=== PATIENT | female | born 1995 | race Caucasian/White ===

== ENCOUNTER 2025-01-13 13:52 | Outpatient (AMB) | payer OTHER, SELFPAY ==
--- NOTE | 2025-01-13 13:56 | A.OFFPC_ITS ---
Vital Signs 01/13/25 14:13 Height 5 ft 11.75 in Weight 189 lb BMI 25.8 BP 104/74 Blood Pressure Location Rt brachial Position Sitting Pulse 60 Pulse Source Pulse Oximeter Temp 98.3 F Temp Source Temporal Artery Scan Pulse Oximetry (%) 97 Oxygen Delivery Method Room Air Intake Visit Reasons: CPE Intake Note: Sarahi presents in the office today for her annual physical. Allergies marijuana (cannabis) Allergy (Verified 01/13/25 14:00) Itchy Seasonal Allergies Allergy (Verified 01/13/25 14:00) Runny Nose Tobacco use date assessed: 01/13/25 Dental Screening Dental Screen Date: 01/13/25 Did you have a dental visit in the last 12 months?: No Did you have a dental problem in the last 6 months where you did not have access to dental care?: No Was dental information given to patient?: Yes HPI HPI Comments History of Present Illness Details This is a 29-year-old female with a past medical history of migraines, asthma, seasonal allergies, bela cisterna magna, elevated liver function tests and recurrent urticaria presenting to [facility] care. I saw her as a patient at [facility] care. Endorses fatigue x 1-2 months. Working 65 hours per week. Sleeps 5-6 hours per night. 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 The only other thing on ROS is that her feet fall asleep easily, but this is positional and improves. Reports last tetanus immunization four years ago when she cut her arm accidentally. 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 She will schedule eye and dental exams. The patient takes albuterol as needed for allergy induced asthma. She also takes Zyrtec. She uses famotidine as needed for acid reflux. She has an EpiPen for a cannabis allergy. She has anxiety and depression. She uses coping strategies like breathing techniques to manage anxiety. She has a therapist that she sees every week. She stopped using cocaine 6 months ago. She drinks alcohol once or twice per week socially 3-5 drinks. ROS: Constitutional: No unexplained weight loss, fever, chills or night sweats. Eyes: No vision changes, blurry vision, double vision, eye pain, eye redness, eye discharge. ENT: No hearing loss, sneezing, congestion, runny nose or sore throat. Respiratory: No shortness of breath, cough or sputum production. Cardiovascular: No chest pain, chest pressure or chest discomfort. No palpitations or pedal edema. Gastrointestinal: No anorexia, nausea, vomiting or diarrhea. No abdominal pain or blood in stool. Genitourinary: No dysuria, hematuria, urinary frequency. Neurologic: No headache, dizziness, syncope, unilateral weakness, ataxia, seizures or tremors. Musculoskeletal: No muscle pain, back pain, joint pain or swelling. Hematologic/Lymphatics: No bleeding or bruising. No painful lymph nodes. Skin: No rash or itching. Endocrine: No cold or heat intolerance. No polyuria or polydipsia. Psychiatric: See HPI. No SI/HI. Physical exam: Constitutional: Alert, in no distress. Head: Normocephalic. Eyes: Pupils are equal, round and reactive to light. Extraocular muscles intact. Ear, Nose and Throat: Canals clear. TMs normal. Normal nasal mucosa. No nasal discharge. No oral lesions. Neck: Supple, Full range of motion. No lymphadenopathy. No palpable thyroid masses. Respiratory: Clear to auscultation. Cardiovascular: S1 S2 regular. No murmurs. Gastrointestinal: Abdomen soft, non-tender, non-distended. Normal bowel sounds. No palpable masses. Neurologic: No focal neurological deficits. Symmetric patellar reflexes. Moves all extremities spontaneously. Sensation intact bilaterally. Skin: No rashes or lesions. Musculoskeletal: No gross deformities. Normal range of motion. Extremities: Warm and well perfused. No clubbing, cyanosis or edema. intact peripheral pulses bilaterally. Sensation of the feet intact bilaterally. Lower extremity strength 5/5 bilaterally. Psychiatric: Normal mood and affect [facility] Medical History (Updated 01/13/25 @ 15:19 by HALLIE Farias) Routine physical examination Bela cisterna magna Migraine Family history of ovarian cancer Screening for cardiovascular condition Fatigue Anxiety Depression Asthma Family History (Updated 01/13/25 @ 14:10 by Lora Noguera MA) Father Lung cancer Leukemia Stroke Woodward's palsy Substance abuse Mother Bipolar 1 disorder, depressed, severe PTSD (post-traumatic stress disorder) Ovarian cancer Blood clotting disorder FHx: mental illness Substance abuse Brother Asthma Liver failure Substance abuse Social History (Updated 01/13/25 @ 14:11 by Lora Noguera MA) Housing: Apartment Alcohol intake: current Patient Tobacco Use Status: Former Tobacco user Cigarette Packs Per Day: 1.5 Cigarettes Per Day: 30 Years Smoked: 3 e-Cigarette/Vaping Use: Currently Using Second Hand Smoke Exposure: Yes Substance Use Type: Crack/Cocaine and Marijuana service: No Current occupational status: employed Current occupation: [employer] Current occupational exposures/hazards: No Cognitive needs: No Hearing needs: No Vision needs: No Questionnaire PHQ-9 Over the last 2 weeks, how often have you been bothered by any of the following problems? 1. Little interest or pleasure in doing things: more than half the days 2. Feeling down, depressed, or hopeless: several days 3. Trouble falling or staying asleep, or sleeping too much: more than half the days 4. Feeling tired or having little energy: nearly every day 5. Poor appetite or overeating: several days 6. Feeling bad about yourself - or that you are a failure or have let yourself or your family down: not at all 7. Trouble concentrating on things, such as reading the newspaper or watching television: several days 8. Moving or speaking so slowly that other people could have noticed. Or the opposite - being so fidgety or restless that you have been moving around a lot more than usual: not at all 9. Thoughts that you would be better off or of hurting yourself in some way: not at all Total score: 10 Depression Screening Interpretation: Positive Depression Screening Follow-up: Existing condition and In treatment Depression Screening Done: Yes 35761 - PHQ-9 Billing: Yes Source: Developed by Drs. Moose Samson, Patti Newman, Han Mclean and colleagues, with an educational tanner from [employer] Thrive Questionnaire Date Thrive assessed: 01/13/25 I am a: Patient What is your living situation today?: I have a steady place to live Within the past 12 months, did the food you bought not last and you didn't have the money to get more?: Never true Within the past 12 months, did you worry whether your food would run out before you got money to buy more?: Sometimes True Do you have trouble paying for medicines?: Yes Do you have trouble getting transportation to medical appointments?: No Do you have trouble paying your heating and electricity bill?: No Do you have trouble taking care of your child, family member or friend?: No Do you have trouble with day-to-day activities such as bathing, preparing meals, shopping, managing finances, etc.?: No Are you currently unemployed and looking for a job?: No Are you interested in more education?: No Please select the resources that you would like help with: None Currently or been in a relationship where the following occur: No concerns reported THRIVE Score: 1 AUDIT C Alcohol Use Questionnaire (AUDIT-C) 1. How often do you have a drink containing alcohol?: 2-3 times a week 2. How many drinks containing alcohol do you have on a typical day when you are drinking?: 3 or 4 3. How often do you have six or more drinks on one occasion?: Less than monthly Total Score: 5 ADELINA-7 AMB Questionnaire ADELINA-7 Date ADELINA - 7 assessed: 01/13/25 Feeling nervous, anxious, or on edge: 0 = Not at all Not being able to stop or control worryin = Not at all Worrying too much about different things: 0 = Not at all Trouble relaxin = Not at all Being so restless that it is hard to sit still: 0 = Not at all Becoming easily annoyed or irritable: 1 = Several days Feeling afraid as if something awful might happen: 0 = Not at all Total ADELINA-7 score (0-4 normal; 5-9 mild; 10-14 moderate; 15-21 severe): 1 Source: Developed by Drs. Moose Samson, Patti Newman, Han Mclean and colleagues, with an educational tanner from [employer] ADELINA-7 Assessment Billing ADELINA-7 Assessment Tool: ADELINA-7 Assessment 74734 ACT Questionnaire In the past 4 weeks, how much of the time did your asthma keep you from getting as much done at work, school or at home?: A little of the time During the past 4 weeks, how often have you had shortness of breath?: More than once a day During the past 4 weeks, how often did your asthma symptoms wake you up at night or earlier than usual in the morning?: Not at all During the past 4 weeks, how often have you had to use your rescue inhaler or nebulizer medication?: More than 3 times per day (2 times a day) How would you rate your asthma control during the past 4 weeks?: Somewhat controlled ACT Interpretation: Positive Score: 14 Physical exam (Primary Care) Vital Signs: Last Vital Signs Temp 98.3 F 01/13/25 14:13 Pulse 60 01/13/25 14:13 BP 104/74 01/13/25 14:13 Pulse Ox 97 01/13/25 14:13 Oxygen Delivery Method Room Air 01/13/25 14:13 BMI result Body Mass Index 25.8 Tobacco/Smoking Status: Tobacco use Status Tobacco use date assessed 01/13/25 01/13/25 14:19 Patient Tobacco Use Status Former Tobacco user 01/13/25 14:19 e-Cigarette/Vaping Use Currently Using 01/13/25 14:19 PHQ-9: PHQ-9 Score PHQ-9: Total score 10 01/13/25 14:19 Depression Screening Interpretation: Positive Depression Screening Follow-up: Existing condition and In treatment Thrive Assessment: Date of Thrive Assessment Date Thrive assessed 01/13/25 01/13/25 14:19 Currently or been in a relationship where the following occur: No concerns reported Coding Level of Care Code Est Pt Prev Care 18-39y(91037) Diagnoses Depression F32.A Anxiety F41.9 Fatigue R53.83 Screening for cardiovascular condition Z13.6 Family history of ovarian cancer Z80.41 Routine physical examination Z00.00 Additional Codes Asthma Control Questionnaire - ACT Interpretation: Positive ([id number]) ADELINA-7 Assessment Billing - ADELINA-7 Assessment Tool: ADELINA-7 Assessment 65728 ([id number]) PHQ-9 - 98863 - PHQ-9 Billing: Yes ([id number]) Assessment & Plan Assessment & Plan (1) Depression: Code(s): F32.A - Depression, unspecified Category: Medical (2) Anxiety: Code(s): F41.9 - Anxiety disorder, unspecified Category: Medical (3) Fatigue: Code(s): R53.83 - Other fatigue Category: Medical Plan: Patient will have lab work completed for fatigues. Inadequate sleep may be contributing to this as well as depression and anxiety. Consider sleep study if lab work is nondiagnostic. (4) Screening for cardiovascular condition: Code(s): Z13.6 - Encounter for screening for cardiovascular disorders Category: Medical (5) Family history of ovarian cancer: Code(s): Z80.41 - Family history of malignant neoplasm of ovary Category: Medical (6) Routine physical examination: Code(s): Z00.00 - Encounter for general adult medical examination without abnormal findings Category: Medical Plan: Patient is seen today for a routine physical. As part of this visit we reviewed the following issues, which are considered and essential part of preventative health in this age group: - Breast Cancer screening - Annual Plant Anatomy Teacher exam - Blood pressure screening - Cholesterol screening - Osteoporosis prevention including calcium/vitamin D intake, weight bearing exercise & smoking cessation - Nutritional and exercise counseling - Counseling of injury prevention including fire prevention, smoke alarms and seat belt usage - Screening for depression - Prevention of and/or testing for infectious diseases- agreeable to screenings - Education about skin cancer - Recommendations about immunizations - Recommendation of an eye exam - Screening for substance abuse - Genetic cancer risk screening - referred to genetic counseling due to family history of ovarian cancer Plan Schedule physical in 1 year. Orders: Orders Comprehensive Met. Panel Today F32.A - Depression, unspecified, F41.9 - Anxiety disorder, unspecified, R53.83 - Other fatigue, Z13.6 - Encounter for screening for cardiovascular disorders Vitamin B12 and Folate Today D64.9 - Anemia, unspecified, F32.A - Depression, unspecified, F41.9 - Anxiety disorder, unspecified, R53.83 - Other fatigue, Z13.6 - Encounter for screening for cardiovascular disorders Vitamin D 25-OH (D2 and D3) Today F32.A - Depression, unspecified, F41.9 - Anxiety disorder, unspecified, R53.83 - Other fatigue, Z13.6 - Encounter for screening for cardiovascular disorders Hepatitis C Antibody Today Z20.2 - Contact with and (suspected) exposure to infections with a predominantly sexual mode of transmission HIV Ab/Ag Today Z20.2 - Contact with and (suspected) exposure to infections with a predominantly sexual mode of transmission Syphilis Screen Today Z20.2 - Contact with and (suspected) exposure to infections with a predominantly sexual mode of transmission TSH reflex Free T4 Today F32.A - Depression, unspecified, F41.9 - Anxiety disorder, unspecified, R53.83 - Other fatigue, Z13.6 - Encounter for screening for cardiovascular disorders Lipid Panel Today F32.A - Depression, unspecified, F41.9 - Anxiety disorder, unspecified, R53.83 - Other fatigue, Z13.6 - Encounter for screening for cardiovascular disorders Complete Blood Count Auto Diff Today F32.A - Depression, unspecified, F41.9 - Anxiety disorder, unspecified, R53.83 - Other fatigue, Z13.6 - Encounter for screening for cardiovascular disorders IRON PROFILE Today D64.9 - Anemia, unspecified, F32.A - Depression, unspecified, F41.9 - Anxiety disorder, unspecified, R53.83 - Other fatigue, Z13.6 - Encounter for screening for cardiovascular disorders Ferritin Today D64.9 - Anemia, unspecified, F32.A - Depression, unspecified, F41.9 - Anxiety disorder, unspecified, R53.83 - Other fatigue, Z13.6 - Encounter for screening for cardiovascular disorders Lyme IgG/IgM w/reflex to WB Today F32.A - Depression, unspecified, F41.9 - Anxiety disorder, unspecified, R53.83 - Other fatigue, Z13.6 - Encounter for screening for cardiovascular disorders CT NG by PCR Urine Today Z20.2 - Contact with and (suspected) exposure to infections with a predominantly sexual mode of transmission Referrals Genetics Referral Z80.41 - Family history of malignant neoplasm of ovary
--- OUTSIDE RECORDS SUMMARY | 2025-01-13 13:56 | XMS_ITS | Encounter Summary ---
Author Organization [facility] Address [address] [place] [phone] Phone Care Team Providers Care Baling Machine Operator Name Role Phone Unknown, Unknown Primary Care Provider Meggan Cummings NP Primary Care Provide r Encounter Details Date Type Department Care Team (Latest Contact Info) Description 08/07/2017 Transcribe Orders [facility] [address] [place] [address] Meggan Anaya, BICYCLE INSPECTOR [address] [place] [address] [email or web address] BMI (body mass index), pediatric, greater than or equal to 95% for age (Primary Dx) Social History Tobacco Use Types Packs/Day Years Used Date Smoking Tobacco: Never Assessed Comments Unknown Sex and Gender Information Value Date Recorded Sex Assigned at Not on file Legal Sex Female 8:49 PM EDT Gender Identity Not on file Sexual Orientation Not on file documented as of this encounter Plan of Treatment Not on file documented as of this encounter Results * TSH (08/07/2017 1:40 PM EST) TSH 1.95 0.27 - 4.20 uIU/mL [facility] Blood 08/07/2017 1:40 PM EST 08/07/2017 1:44 PM EST us Meggan Ambrosio Lizemores BICYCLE INSPECTOR LAB BLOOD ORDERABLES Final Result [address] [address] * Lipid panel (08/07/2017 1:40 PM EST) HDL 36 mg/dL [facility] Comment: Interpretation: Risk Level Females Decreased >55mg/dL Average 50-55 mg/dL Increased <50 mg/dL CHOLESTEROL 136 0 - 240 mg/dL [facility] TRIGLYCERIDES 108 30 - 160 mg/dL [facility] LDL 78 50 - 129 mg/dL [facility] Comment: LDL levels in terms of risk for coronary heart disease: <100 mg/dL: Optimal 100-129 mg/dL: Near or above optimal 130-159 mg/dL: Borderline high 160-189 mg/dL: High >190 mg/dL: Very High CARDIAC RISK RATIO 3.8 3.3 - 4.4 C [facility] Blood 08/07/2017 1:40 PM EST 08/07/2017 1:44 PM EST us Meggan Ambrosio Lizemores BICYCLE INSPECTOR LAB BLOOD ORDERABLES Final Result Performing Organization Address [facility]/ZIP Co de Phone Number [address] [address] * Hemoglobin A1c (08/07/2017 1:40 PM EST) Pathologist [facility] HEMOGLOBIN A1C 4.9 4.3 - 5.8 % [facility] Blood 08/07/2017 1:40 PM EST 08/07/2017 1:44 PM EST us Meggan Ambrosio Lizemores BICYCLE INSPECTOR LAB BLOOD ORDERABLES Final Result Performing Organization Address City/[facility]/ZIP Co de Phone Number [address] [address] * (ABNORMAL) CBC and differential (08/07/2017 1:40 PM EST) WBC 7.36 3.40 - 11.20 K/uL [facility] RBC 4.66 3.80 - 4.80 M/uL [facility] HGB 14.6 12.0 - 15.0 g/dL [facility] HCT 41.8 36.0 - 46.0 % [facility] PLT 233 130 - 400 K/uL [facility] MCV 89.7 79.0 - 98.0 fL [facility] MCH 31.3 27.0 - 34.8 pg [facility] MCHC 34.9 31.5 - 36.0 g/dL [facility] RDW 11.6 10.8 - 14.6 % [facility] MPV 10.1 9.4 - 12.4 fl [facility] NRBC 0.00 /100 WBCs [facility] ABSOLUTE NRBC 0.00 K/uL [facility] DIFF METHOD Auto [facility] NEUTS 53.7 45.30 - 77.70 % [facility] LYMPHS 28.8 12.30 - 39.70 % [facility] MONOS 10.2 4.10 - 12.80 % [facility] EOS 5.8 0 - 7.2 % [facility] BASOS 1.1 0 - 2.80 % [facility] Granulocytes, immature (%) 0.4 0.0 - 0.9 % [facility] ABSOLUTE NEUTS 3.95 1.40 - 7.70 K/uL [facility] ABSOLUTE LYMPHS 2.12 0.60 - 3.20 K/uL [facility] ABSOLUTE MONOS 0.75(H) 0.11 - 0.59 K/uL [facility] ABSOLUTE EOS 0.43 0.01 - 0.50 K/uL [facility] ABSOLUTE BASOS 0.08 0.00 - 0.08 K/uL [facility] Granulocytes, immature 0.03 0.00 - 0.05 K/uL [facility] Blood 08/07/2017 1:40 PM EST 08/07/2017 1:44 PM EST us Meggan Ambrosio Lizemores BICYCLE INSPECTOR LAB BLOOD ORDERABLES Final Result [address] [address] * (ABNORMAL) Alanine aminotransferase (ALT) (08/07/2017 1:40 PM EST) ALT 41(H) 0 - 40 U/L [facility] Blood 08/07/2017 1:40 PM EST 08/07/2017 1:44 PM EST us Meggan Anaya BICYCLE INSPECTOR LAB BLOOD ORDERABLES Final Result [facility] [address] [place] [address] documented in this encounter Visit Diagnoses Diagnosis BMI (body mass index), pediatric, greater than or equal to 95% for age- Primary Body Mass Index, pediatric, greater than or equal to 95th percentile for age documented in this encounter Care Teams Baling Machine Operator Relationship Specialty Start Date End Date Unknown, Unknown, PCP - General 08/06/17 08/21/17 Meggan Anaya NP [address] [place] [address] [email or web address] PCP - General Family Medicine 08/22/17 documented as of this encounter Additional Source Comments The information contained in this document represents components of the legal health record. It is not the complete legal health record.[facility]
--- OUTSIDE RECORDS SUMMARY | 2025-01-13 13:56 | XMS_ITS | Clinical Summary ---
Author Organization [facility] Address [address] [place] [phone] Phone Care Team Providers Care Pulper Operator Name Role Phone Unavailable Primary Care Provider Unavailabl e Allergies No known active allergies Medications FLUoxetine (PROZAC) 20 MG capsule Take 20 mg by mouth. 6 Active levonorgestrel 20 MCG/24HR IUD 1 each by Intrauterine route once. Active Active Problems Problem Noted Date Diagnosed Date Depressive disorder 03/29/2015 Overview (06/29/2017): 12/30/16 doing well on 20mg, seeing Phyllis Garcia weekly. Overweight 03/29/2015 Overview (06/29/2017): Rapid wt gain in past 10 mos since 04/2013, ? related to fluoxetine. Was on Wellbutrin prior to that which did not help her depression Allergic rhinitis 03/17/2015 Resolved Problems Problem Noted Date Diagnosed Date Resolved Date Irregular menstruation 03/29/201508/06 Overview (06/29/2017): CONFIDENTIAL: has Mirena, menses occur rarely Immunizations Immunization Administration Dates Next Due DTaP 11/08/2002, 9,01/05/1998,10/21,1997 DTaP 5 11/08/2002, 9,01/05/1998,10/21,1997 HPV, Quadrivalent 06/08/2010,04/05/2010,11/30/19 10 Hep B, ped/adol 01/05/1998, 8,1997,08/16,1997,1997 Hib (PRP-T) 09/15/1998, 9,01/05/1998,01/05,1997,1997,1997 ,1997 IPV 11/08/2002,11/08/2002 Influenza 05/24/2008,04/23/2007 Influenza, injectable, quadr ivalent, preservative free 08/06/2017,05/03/2016,08/11/2015,03/31 Influenza, injectable, trivalent 012,04/27/2011,04/05/2010,04/23 Influenza, intranasal, quadrivalent 08/22/2014 MMR 11/08/2002, 3,09/15/1998,09/15 Meningococcal Conj (Menactra) MCV4P 08/22/2014,0 11/29/2009 OPV 01/05/1998, 8,1997,10/21,1997,1997 Td (adult) (MBL), 2 Lf tetan us toxoid, PF, adsorbed 11/05/2016 Tdap 11/29/2009 Varicella 05/24/2008,07/13/1999,07/13/1999 Family History Relation Name Status Comments Brother 1 Brother: ADHD, Obesity, Asthma Brother 2 Brother: ADHD, Obesity, Asthma Father Alive Father: Alive a nd well Maternal Grandmother Materna l Aunt: cancer of the larynx Mother Alive Mother: Asthma Other cancer of the l arynx Social History Tobacco Use Types Packs/Day Years Used Date Smoking Tobacco: Every Day Cigarettes Smokeless Tobacco: Never Tobacco Cessation:Counseling Given: Yes Alcohol Use Standard Drinks/Week Comments No 0 (1 standard drink = 0.6 oz pur e alcohol) Comments No Sex and Gender Information Value Date Recorded Sex Assigned at Not on file Legal Sex Female 4:24 PM EDT Gender Identity Not on file Sexual Orientation Not on file Last Filed Vital Signs Vital Sign Reading Time Taken Comments Blood Pressure 120/74 08/06/2017 10:17 AM EST Pulse 83 08/06/2017 10:17 AM EST Temperature 36.8 C (98.3 F) 07/18/2017 2:01 PM EST Respiratory Rate - - Oxygen Saturation 96% 02/25/2017 12:00 AM EDT Inhaled Oxygen Concentration - - Weight 102 kg (225 lb) 08/06/2017 10:17 AM EST Height 179.1 cm (5' 10.5 ) 08/06/2017 10:[address] Body Mass Index 31.83 08/06/2017 10:17 AM EST Plan of Treatment Health Maintenance Due Date Last Done Comments HPV Vaccines (3 - 2-dose series) 08/31/2010 06/08/2010, 04/05/2010, 11/29/2009 COVID-19 Vaccine ( season) 2024 Influenza Vaccines (#1) 2025 04/14/20 19, 08/06/2017, 05/03/2016, Additional history exists DTaP,Tdap,and Td Vaccines (8 - Td or Tdap) 11/05/2026 11/05/2016, 11/29/2009, 11/08/2002, Additional history exists Hepatitis B Vaccines Completed 01/05/1998, 01/05/1998, 1997, Additional history exists HIB Vaccines Completed 09/15/1998, 08/22, 01/05/1998, Additional history exists IPV Vaccines Completed 11/08/2002, 10/21, 01/05/1998, Additional history exists MMR Vaccines Completed 11/08/2002, 10/21, 09/15/1998, Additional history exists Varicella Vaccines Completed 05/24/2008, 0 07/13/1999, 07/13/1999 Meningococcal Vaccine Completed 08/22/2014, 010 Hepatitis A Vaccines Aged Out No long er eligible based on patient's age to complete this topic Men B Vaccine Aged Out No longer elig ible based on patient's age to complete this topic Pneumococcal Vaccine Aged Out No long er eligible based on patient's age to complete this topic Procedures * Due to [place] [employer] law, this organization might not be sharing sensitive test results. Procedure Name Priority Date/Time Associated Diagnosis Comments CHLAMYDIA TRACHOMATIS, AMPLIFIED Routine 08/06/2017 11:27 AM EST Well adult exam from Last 3 Months or Most Recently Relevant to Health Maintenance Results * Due to [place] [employer] law, this organization might not be sharing sensitive test results. * Chlamydia trachomatis, Amplified (08/06/2017 11:27 AM EST) Chlamydia trachomatis RNA, TMA Not Detected Not Detected 08/07/2017 10:23 AM EST [facility] Urine 08/06/2017 11:2 7 AM EST 08/06/2017 11:29 AM EST Meggan Anaya NP LAB MICROBIOLOGY - GENERAL ORD ERABLES Final Result [facility] from Last 3 Months or Most Recently Relevant to Health Maintenance
[2025-01-13 14:13] VITALS: BP 104/74; PULSE 60; TEMP 36.8; O2SAT 97; BMI 25.8
== END 2025-01-13 14:46 | disposition home or self-care (01) ==
LOC: HO.HMCFM 13:52
PROVIDERS: PCP Physician Assistant Medical; Visit Provider Physician Assistant Medical
DX: F32.A Depression, unspecified (principal); F41.9 Anxiety disorder, unspecified; R53.83 Other fatigue; Z13.6 Encounter for screening for cardiovascular disorders; Z80.41 Family history of malignant neoplasm of ovary; Z00.00 Encounter for general adult medical examination without abnormal findings

== ENCOUNTER → 2025-01-13 13:52 | Outpatient (BNVA) | payer OTHER, SELFPAY | PROVIDERS: PCP Physician Assistant Medical; Visit Provider Physician Assistant Medical | DX: Z00.00 Encounter for general adult medical examination without abnormal findings (principal); Z76.89 Persons encountering health services in other specified circumstances; F32.A Depression, unspecified; F41.9 Anxiety disorder, unspecified; R53.83 Other fatigue; J45.909 Unspecified asthma, uncomplicated; K21.9 Gastro-esophageal reflux disease without esophagitis; Z80.41 Family history of malignant neoplasm of ovary; Z13.31 Encounter for screening for depression; Z13.39 Encounter for screening examination for other mental health and behavioral disorders | CPT/HCPCS: 96127; 96160; 99395 ==

== ENCOUNTER 2025-01-13 14:52 | Outpatient (REF) | payer OTHER, SELFPAY ==
[2025-01-13 17:32] LABS: MANUAL DIFF FLAG NO
[2025-01-13 17:57] LABS: Hematocrit 39.5 % (37.0-47.0); Hemoglobin 13.7 g/dl (12.0-16.0); Imm Gran Abs Auto 0.02 X10*3/uL (0.00-0.03); Imm Gran Pct Auto 0.2 % (0.0-0.4); Lymphocytes Absolute Auto 3.0 X10*3/uL (1.2-4.9); Mean Corpuscular HGB Conc 34.7 g/dl (31.0-35.0); Mean Corpuscular Hemoglobin 33.2 pg (27.0-33.0); Mean Corpuscular Volume 95.6 fL (80.0-98.0); NRBC Abs Auto 0.000 X10*3/uL (0.0-0.012); NRBC Pct Auto 0.0 /100WBC (0.0-0.2); Platelet Count 258 X10*3/uL (160-400); Red Blood Count 4.13 X10*6/uL (4.20-5.50); White Blood Count 8.7 X10*3/uL (4.8-10.8)
[2025-01-13 18:02] LABS: Alanine Aminotransferase 40 U/L (0-31); Albumin Level 4.4 g/dL (3.5-5.0); Alkaline Phosphatase 38 U/L (39-117); Anion Gap 12 (12-20); Aspartate Amino Transferase 63 U/L (5-31); Blood Urea Nitrogen 18 mg/dL (9-16); Calcium 9.0 mg/dL (8.4-10.2); Carbon Dioxide 24 mmol/L (22-29); Chloride 103 mmol/L (96-108); Cholesterol 117 mg/dL (<200); Estimated Glomerular Filt Rate > 60; HDL Cholesterol 55 mg/dL (>40); Iron 143 mcg/dL (30-160); Percent Iron Saturation 43 % (15-50); Potassium 3.4 mmol/L (3.3-5.1); Sodium 136 mmol/L (135-145); Total Iron Binding Capacity 336 mcg/dL (228-428); Total Protein 7.3 g/dL (6.5-8.0); Triglycerides 59 mg/dL (<150); Unsaturated Iron Binding 193 ug/dL
[2025-01-13 18:12] LABS: Ferritin 28 ng/mL (10-122)
[2025-01-13 18:23] LABS: Folate 8.5 ng/mL (> or = 4.0); Vitamin B12 405 pg/mL (200-900)
[2025-01-13 22:25] LABS: CT PCR Urine NOT DETECTED (Not Detect.); NG PCR Urine NOT DETECTED (Not Detect.)
[2025-01-14 03:40] LABS: Syphilis Screen Nonreactive (Nonreactive)
[2025-01-14 04:05] LABS: HIV Num 1 0.05 S/CO (0.00-0.99); ~HepC Num1 0.17 S/CO (0.00-0.79); ~Hepatitis C Antibody Nonreactive (Nonreactive)
[2025-01-14 10:23] LABS: Lyme Abs Screen <0.90 index
[2025-01-17 16:13] LABS: Vitamin D 25-OH, D2 <4 ng/mL; Vitamin D 25-OH, D3 27 ng/mL; Vitamin D 25-OH, Total 27 ng/mL (30-100)
== END 2025-01-13 14:53 | disposition home or self-care (01) ==
LOC: HO.WFDLDS 14:52
PROVIDERS: Visit Provider Physician Assistant Medical
DX: Z01.84 Encounter for antibody response examination (principal); Z13.6 Encounter for screening for cardiovascular disorders; F32.A Depression, unspecified; D64.9 Anemia, unspecified; F41.9 Anxiety disorder, unspecified; R53.83 Other fatigue; Z20.2 Contact with and (suspected) exposure to infections with a predominantly sexual mode of transmission; Z11.4 Encounter for screening for human immunodeficiency virus [HIV]; Z11.3 Encounter for screening for infections with a predominantly sexual mode of transmission; Z11.59 Encounter for screening for other viral diseases
CPT/HCPCS: 36415; 80053; 80061; 82306; 82607; 82728; 82746; 83540; 84443; 85025; 86617; 86618; 86780; 86803; 87389; 87491; 87591

== ENCOUNTER 2025-03-04 15:53 | Outpatient (REF) | payer OTHER, SELFPAY ==
--- OUTSIDE RECORDS SUMMARY | 2025-03-04 17:47 | XMS_ITS | Encounter Summary ---
Author Organization [facility] Address [address] [place] [address] Phone Care Team Providers Care Wildlife Removal Specialist Name Role Phone Savannah Dallas MD Primary Care Provider + [phone] Unknown, Unknown Primary Care Provider Meggan Cummings SUPERINTENDENT OF GENERATION Primary Care Provide r Encounter Details Date Type Department Care Team (Late st Contact Info) Description 08/05/2017 Ancillary Orders [facility] [address] [place] [address] Elio Healy MD [address] [place] [phone] [email or web address] Left shoulder pain, unspecified chronicity Social History Tobacco Use Types Packs/Day Years Used Date Smoking Tobacco: Never Assessed Comments Unknown Sex and Gender Information Value Date Recorded Sex Assigned at Not on file Legal Sex Female 8:49 PM EDT Gender Identity Not on file Sexual Orientation Not on file documented as of this encounter Plan of Treatment Upcoming Encounters Date Type Department Care Team (Late st Contact Info) Description 03/09/2025 8:00 AM EDT Office Visit [facility] [address] [place] [address] [place] [address] Vida Amaya MD [address] [facility], [address] [place] [address] [email or web address] documented as of this encounter Results * XR SHOULDER 2 VIEWS (LEFT) (08/08/2017 11:44 AM EST) Narrative Ramila Kraft - 08/08/2017 11:44 AM EST This image report has been auto-finalized and has not been read by a Radiologist. Interpretation has been included in the provider encounter note for this date of service. us Elio Healy MD IMG XR UPPER EXTREMITY Fi nal Result documented in this encounter Visit Diagnoses Diagnosis Left shoulder pain, unspecified chronicity Left shoulder pain, unspecified chronicity documented in this encounter Care Teams Wildlife Removal Specialist Relationship Specialty Start Date End Date Savannah Dallas MD PCP - General 05/28/17 08/05/17 Unknown, Unknown, PCP - General 08/06/17 08/21/17 Meggan Anaya NP [address] [place] [phone] [email or web address] PCP - General Family Medicine 08/22/17 documented as of this encounter Additional Source Comments The information contained in this document represents components of the legal health record. It is not the complete legal health record.[facility]
--- OUTSIDE RECORDS SUMMARY | 2025-03-04 17:47 | XMS_ITS | Clinical Summary ---
Author Organization [facility] Address [address] [place] [phone] Phone Care Team Providers Care Leasing Professional Name Role Phone Unavailable Primary Care Provider [...] - 2-dose series) 08/31/2010 06/08/2010, 04/05/2010, 11/29/2009 Influenza Vaccines (#1) 2025 04/14/20 19, 08/06/2017, 05/03/2016, Additional history exists COVID-19 Vaccine ( season) 2025 DTaP,Tdap,and Td Vaccines (8 - Td or [...] complete this topic Procedures * Due to [place] [employer] law, this organization might not be sharing sensitive test results. Procedure Name Priority Date/Time Associated Diagnosis Comments CHLAMYDIA TRACHOMATIS, AMPLIFIED Routine 08/06/2017 11:27 AM EST Well adult exam from Last 3 Months or Most Recently Relevant to Health Maintenance Results * Due to [place] [employer] law, this organization might not be sharing [...]
--- OUTSIDE RECORDS SUMMARY | 2025-03-04 17:47 | XMS_ITS | Clinical Summary ---
Author Organization [facility] Address [address] [facility] [address] [place] [address] Phone Care Team Providers Care Grades 7 And 8 Visiting Teacher Name Role Phone Meggan Anaya NP Primary Care Provide r Allergies No known active allergies Medications VENTOLIN HFA 90 mcg/actuation inhaler INHALE 2 PUFFS BY MOUTH EVERY 6 HOURS NEEDED FOR WHEEZING/GUY RTNESS OF BREATH 3 Active cetirizine (ZYRTEC) 10 MG tablet Take 10 mg by mouth nightly at bedtime. 3 Active famotidine (PEPCID) 20 MG tablet Take 1 tablet by mouth 2 (two) times a day. 3 Active ondansetron (ZOFRAN-ODT) 4 MG disintegrating tablet 3 Active EPINEPHrine (EPIPEN) 0.3 mg/0.3 mL auto-injector Inject 0.3 mg into the muscle. 3 Active norgestimate-ethiny l estradioL (ORTHO-CYCLEN) 0.25-0.035 mg per tabletIndications:E ncounter for contraceptive management, unspecified type TAKE 1 TABLET BY MOUTH EVERY DAY 84 tablet 5 Active Active Problems Problem Noted Date Diagnosed Date Depressive disorder 03/29/2015 Overview (03/10/2020): Overview: 12/30/16 doing well on 20mg, seeing Phyllis Garcia weekly. Resolved Problems Problem Noted Date Diagnosed Date Resolved Date Oral contraception initial prescription 04/24/2020 03/27/2021 Assessment & Plan (04/24/2020 5:04 PM EST): Contraceptive options risks and benefits reviewed. Patient would like to proceed with OCP use. Low risks of estrogen and VTE as well as smoking risk reviewed. Patient has no contraindications. Advise backup condom use in the first weeks of initiation of OCP use. Patient to start OCP today. Patient anticipates planning for . Advised patient to schedule preconception counseling appointment when conception desired. Daily folate for congenital defects risk reduction at time contraception discontinued reviewed. IUD (intrauterine device) in place 03/10/2020 04/24/2020 Overview (03/10/2020): Mirena in place since 08/2014 Strings not visible on exam Assessment & Plan (03/10/2020 2:46 PM EDT): Discussed to have replaced within 5-7 years Encounters Date Type Department Care Team Description 02/07/2025 7:52 AM EDT - 02/07/2025 11:59 PM EDT Hospital Encounter [facility] [place] [address] Eveline Randle CNM Discharge Disposition: Home or Self Care 02/07/2025 7:30 AM EDT Office Visit [facility] [address] [place] [address] [place] [address] Eveline Randle CNM Routine screening for STI (sexually transmitted infection) (Primary Dx); Need for hepatitis B screening test 01/25/2025 Telephone [facility] [address] [place] [address] [place] [address] Winnie Gonzalez RN STI testing 01/10/2025 Refill [facility] [address] [place] [address] Pauline Duggan CNM Medication Refill from Last 3 Months Immunizations Immunization Administration Dates Next Due Dtap, 5 Pertussis Antigens 11/08/2002,,01/05/1998,10/21,1997 HPV,quadrivalent 06/08/2010,04/05/2010, 0 Hepatitis B 01/05/1998, 8,1997,06/17 Hib,PRP-T 09/15/1998, 8,1997,08/16 INFLUENZA, SPLIT VIRUS, TRIV ALENT W/ PRESERVATIVE IM 04/22/2012,04/27/2011,04/05/2010,04/23 IPV 11/08/2002 Influenza Quadrivalent Intranasal 08/22/2014 Influenza Quadrivalent Prese rvative Free IM 04/14/2019,08/06/2017,05/03/2016,08/11,03/31/2013 Influenza, Unspecified Formulation 05/24/2008 MMR 11/08/2002,09/15/1998 Meningococcal MCV4P 08/22/2014,11/29/2009 Polio - OPV 01/05/1998,1997,1997 Td (adult),2 Lf Tetanus Toxo id, PF, Adsorbed 11/05/2016 Tdap 11/29/2009 Varicella 05/24/2008,07/13/1999 Family History Medical History Relation Comments No Known Problems Father No Known Problems Mother Relation Status Comments Father Alive Mother Alive Social History Tobacco Use Types Packs/Day Years Used Date Smoking Tobacco: Former Cigarettes Smokeless Tobacco: Never Tobacco Cessation:Counseling Given: Not Answered Alcohol Use Standard Drinks/Week Comments Yes 2 (1 standard drink = 0.6 oz pur e alcohol) socially Education Answer Date Recorded Are you interested in more education? Not on lalit e 10/18/2022 Are you concerned about learning? Not on file 10/18/2022 No 10/18/2022 No 10/18/2022 Digital Access Answer Date Recorded No 11/18/2022 No 11/18/2022 Reliable internet access at home? Not on file 11/18/2022 Device with a working camera? Not on file Comments No Sex and Gender Information Value Date Recorded Sex Assigned at Not on file Legal Sex Female 8:49 PM EDT Gender Identity Not on file Sexual Orientation Not on file Last Filed Vital Signs Vital Sign Reading Time Taken Comments Blood Pressure 90/62 02/07/2025 7:39 AM EDT Pulse 78 04/18/2016 8:41 AM EDT Temperature - - Respiratory Rate - - Oxygen Saturation - - Inhaled Oxygen Concentration - - Weight 85.5 kg (188 lb 9.6 oz) 02/07/2025 7:39 A M EDT Height 181.6 cm (5' 11.5 ) 02/07/2025 7:39 AM ED T Body Mass Index 25.94 02/07/2025 7:39 AM EDT Plan of Treatment Upcoming Encounters Date Type Department Care Team (Late st Contact Info) Description 03/09/2025 8:00 AM EDT Office Visit [facility] [address] [place] [address] [place] [address] Vida Amaya MD [address] [place] [address], [address] [place] [address] [email or web address] Due Date Last Done Comments DEPRESSION SCREENING 2009 SMOKING Hx and SMOKELESS TOBACCO SCREENING 2010 INFLUENZA VACCINE (#1) 2025 , 04/14/2019, 08/06/2017, Additional history exists COVID-19 VACCINE ( season) 2025 03/03/2021 PAP SMEAR 08/09/2025 08/09/2022, 04/0 01/2019, 09/28/2018 Adult Td,Tdap Booster 11/05/2026 11/05/2016 , 11/05/2016, 11/29/2009 HIB VACCINES Completed 09/15/1998, 12/21, 1997, Additional history exists MENINGOCOCCAL VACCINES (ACWY) Completed 08/22/2014, 08/22/2014, 11/29/2009, Additional history exists HEPATITIS C SCREENING Completed 02/07/2025 , 12/09/2023, 01/31/2023 HIV ONE-TIME SCREENING (18-65 YEARS) Completed 02/07/2025 HEPATITIS A VACCINES Aged Out No long er eligible based on patient's age to complete this topic MENINGOCOCCAL VACCINES (B) Aged Out N o longer eligible based on patient's age to complete this topic PNEUMOCOCCAL VACCINES (0-49 years) Aged Out No longer eligible based on patient's age to complete this topic Medical Devices Not on file Procedures Procedure Name Priority Date/Time Associated Diagnosis Comments SYPHILIS ANTIBODY SCREEN ASSAY Routine 02/07/2025 8:11 AM EDT Routine screening for STI (sexually transmitted infection) HIV-1/2 ANTIGEN/ANTIBODY Routine 02/07/2025 8:11 AM EDT Routine screening for STI (sexually transmitted infection) HEPATITIS B SURFACE ANTIGEN Routine 02/07/2025 8:11 AM EDT Need for hepatitis B screening test HEPATITIS C ANTIBODY, QUALITATIVE Routine 02/07/2025 8:11 AM EDT Routine screening for STI (sexually transmitted infection) CHLAMYDIA TRACHOMATIS AND NEISSERIA GONORRHOEAE NUCLEIC ACID DETECTION Routine 02/07/2025 7:55 AM EDT Routine screening for STI (sexually transmitted infection) PAP TEST Routine 08/09/2022 12:00 AM EST from Last 3 Months or Most Recently Relevant to Health Maintenance Results * HIV-1/2 antigen/antibody (02/07/2025 8:11 AM EDT) HIV-1/2 Antigen/Antibo dy NON-REACTI VE NON-REACTI VE [facility] Blood 02/07/2025 8:11 AM EDT 02/07/2025 11:46 AM EDT us Eveline MASON LAB BLOOD ORDERABLES Fi nal Result [address] [address] * Hepatitis C antibody, qualitative (02/07/2025 8:11 AM EDT) HCV NON-REACTIV E NON-REACTI VE [facility] Blood 02/07/2025 8:11 AM EDT 02/07/2025 11:03 AM EDT Evelinepallavi Randle [facility] LAB BLOOD ORDERABLES Fi nal Result Performing Organization Address City/[facility]/ZIP Co de Phone Number [address] [address] * Syphilis antibody screen (02/07/2025 8:11 AM EDT) RPR NON-REACTIV E NON-REACTI VE [facility] Blood 02/07/2025 8:11 AM EDT 02/07/2025 11:03 AM EDT Evelinepallavi MASON LAB BLOOD ORDERABLES Fi nal Result Performing Organization Address [facility] Co de Phone Number [address] [address] * Hepatitis B surface antigen (02/07/2025 8:11 AM EDT) HBV SURFACE ANTIGEN NON-REACTI VE NON-REACTI VE [facility] Blood 02/07/2025 8:11 AM EDT 02/07/2025 11:03 AM EDT Evelinepallavi Randle [facility] LAB BLOOD ORDERABLES Fi nal Result Performing Organization Address [facility]/ZIP Co de Phone Number [address] [address] * Chlamydia trachomatis and Neisseria gonorrhoeae Nucleic Acid Amplification (02/07/2025 7:55 AM EDT) CHLAMYDIA TRACHOMATIS Not Detected Not Detected [facility] NEISERIA GONORRHOEAE Not Detected Not Detected [facility] SPECIMEN TYPE URINE [facility] Urine (Urine) 02/07/2025 7:5 5 AM EDT 02/07/2025 3:02 PM EDT Eveline Randle CNM NON CULTURE MICROBIOLOG Y Final Result Performing Organization Address City/[facility]/ZIP Co de Phone Number [address] [address] * Pap Test (08/09/2022 12:00 AM EST) 08/09/2022 08/12/2022 10: 32 AM EST Narrative SEE NARRATIVE - 08/14/2022 12:44 PM EST [address] [address] [place] [employer]ose End Finder: Melody Vuong MD EARLY CHILDHOOD AIDE CLASSROOM Cytology Report FINAL DIAGNOSIS A. PAP SMEAR (SUREPATH) CE: SPECIMEN ADEQUACY: Satisfactory for evaluation; transformation zone absent/insufficient. INTERPRETATION: NEGATIVE FOR INTRAEPITHELIAL LESION OR MALIGNANCY. Reactive changes. Electronically Signed Out By: TONY Chisholm MD(ASCP) By his/her signature above, the pathologist listed as making the Final Diagnosis certifies that he/she has personally reviewed this case and confirmed or corrected the diagnosis. The Pap test is a screening test primarily for squamous cancers and precursors and has associated false-negative and false-positive results. New technologies such as liquid-based preparations may decrease but will not eliminate all false-negative results. Regular sampling and follow-up of unexplained clinical signs and symptoms are recommended to minimize false negative results. CLINICAL HISTORY Date of Last Menstrual Period: 06-28-2022 Other Clinical Conditions: Screening Pap SPECIMEN SOURCE A: PAP SMEAR (SUREPATH) CE Patient Name: KULDIP GONZALEZ : 1995 (Age: 27) Sex: F [facility] Date of Collection: 08/09/2022 Date of Reported: 08/14/2022 12:44 Results to: Lora Bolaños MSN us Lora Bolaños CNM CYTOLOGY ORDERABLES Final Result Performing Organization Address City/[facility] Co de Phone Number SEE NARRATIVE from Last 3 Months or Most Recently Relevant to Health Maintenance Insurance WELLSENSE NON NSPG PCP SILVER CLARITY CONNECTORCARE WELLSENSE NON NSPG PCP SILVER CLARITY CONNECTORCARE WELLSENSE NON NSPG PCP SILVER CLARITY CONNECTORCARE WELLSENSE NON NSPG PCP SILVER CLARITY CONNECTORCARE WELLSENSE NON NSPG PCP SILVER CLARITY CONNECTORCARE WELLSENSE NON NSPG PCP SILVER CLARITY CONNECTORCARE Care Teams Grades 7 And 8 Visiting Teacher Relationship Specialty Start Date End Date Meggan Anaya NP [address] [place] [phone] [email or web address] PCP - General Family Medicine 08/22/17 Additional Source Comments The information contained in this document represents components of the legal health record. It is not the complete legal health record.[facility]
--- OUTSIDE RECORDS SUMMARY | 2025-03-04 17:47 | XMS_ITS | Encounter Summary ---
Author Organization [facility] Address [address] [facility] [address] [facility] [address] [place] [address] Phone Care Team Providers Care Bosom Presser Name Role Phone Unknown, Unknown Primary Care Provider Meggan Cummings PHOTO ENGRAVER Primary Care Provide r Encounter Details Date Type Department Care Team (Latest Contact Info) Description 08/06/2017 Transcribe Orders [facility] [address] [place] [address] Meggan Anaya, PHOTO ENGRAVER [address] [place] [address] [email or web address] Routine general medical examination at a health care facility (Primary Dx) Social History Tobacco Use Types [...] Office Visit [facility] [address] [place] [address] [place] [address] Vida Amaya MD [address] [facility], [address] [place] [address] documented as of this encounter Results * Chlamydia trachomatis nucleic acid detection (08/06/2017 11:27 AM EST) CHLAMYDIA TRACHOMATIS Not Detected Not Detected [facility] Urine (Urine) 08/06/2017 11: 27 AM EST 08/06/2017 11:29 AM EST us Meggan Ambrosio Mackey PHOTO ENGRAVER NON CULTURE MICROBIOL OGY Final Result [facility] [address] [place] [address] documented in this encounter Visit Diagnoses Diagnosis Routine general medical examination at a health care facility- Primary documented in this encounter Care Teams Bosom Presser Relationship Specialty Start Date End Date Unknown, Unknown, PCP - General 08/06/17 08/21/17 Meggan Anaya NP [address] [place] [address] [email or web address] PCP - General Family Medicine 08/22/17 documented as of this encounter Additional Source Comments The information contained in this document represents components of the legal health record. It is not the complete legal health record.[facility]
--- OUTSIDE RECORDS SUMMARY | 2025-03-04 17:47 | XMS_ITS | Encounter Summary ---
Author Organization [facility] Address [address] [facility] [address] [place] [address] Phone Care Team Providers Care Collections Agent Name Role Phone Unknown, Unknown Primary Care Provider Meggan Cummings MAGNETIC PROSPECTOR Primary Care Provide r Encounter Details Date Type Department Care Team (Latest Contact Info) Description 08/07/2017 Transcribe Orders [facility] [address] [place] [address] Meggan Anaya, MAGNETIC PROSPECTOR [address] [place] [address] [email or web address] BMI (body mass index), pediatric, greater [...] Office Visit [facility] [address] [place] [address] [place] [address] Vida Amaya MD [address] [facility], [address] [place] [address] documented as of this encounter Results * TSH (08/07/2017 1:40 PM EST) TSH 1.95 0.27 - 4.20 uIU/mL [facility] Blood 08/07/2017 1:40 PM EST 08/07/2017 1:44 PM EST [facility] Ambrosio [place] MAGNETIC PROSPECTOR LAB BLOOD ORDERABLES Final Result Performing Organization Address City/[facility]/ZIP Co de Phone Number [address] [address] * Lipid panel (08/07/2017 1:40 PM EST) Pathologist [facility] HDL 36 mg/dL [facility] Comment: Interpretation: Risk Level Females Decreased >55mg/dL Average 50-55 mg/dL Increased <50 mg/dL CHOLESTEROL 136 0 - 240 mg/dL [facility] TRIGLYCERIDES 108 30 - 160 mg/dL [facility] LDL 78 50 - 129 mg/dL [facility] Comment: LDL levels in terms of risk for coronary heart disease: <100 mg/dL: Optimal 100-129 mg/dL: Near or above optimal 130-159 mg/dL: Borderline high 160-189 mg/dL: High >190 mg/dL: Very High CARDIAC RISK RATIO 3.8 3.3 - 4.4 C [facility] Blood 08/07/2017 1:40 PM EST 08/07/2017 1:44 PM EST [facility] [place] MAGNETIC PROSPECTOR LAB BLOOD ORDERABLES Final Result Performing Organization Address City/[facility]/ZIP Co de Phone Number [address] [address] * Hemoglobin A1c (08/07/2017 1:40 PM EST) HEMOGLOBIN A1C 4.9 4.3 - 5.8 % [facility] Blood 08/07/2017 1:40 PM EST 08/07/2017 1:44 PM EST Meggan Marys Héctor MAGNETIC PROSPECTOR LAB BLOOD ORDERABLES Final Result [facility] [address] [place] [address] * (ABNORMAL) CBC and differential (08/07/2017 1:40 PM EST) WBC 7.36 3.40 - 11.20 K/uL [facility] RBC 4.66 3.80 - 4.80 M/uL [facility] HGB 14.6 12.0 - 15.0 g/dL [facility] HCT 41.8 36.0 - 46.0 % [facility] PLT 233 130 - 400 K/uL [facility] MCV 89.7 79.0 - 98.0 fL [facility] MCH 31.3 27.0 - 34.8 pg [facility] MCHC 34.9 31.5 - 36.0 g/dL [facility] RDW 11.6 10.8 - 14.6 % [facility] MPV 10.1 9.4 - 12.4 fl [facility] NRBC 0.00 /100 WBCs [facility] ABSOLUTE NRBC 0.00 K/uL [facility] DIFF METHOD Auto [facility] NEUTS 53.7 45.30 - 77.70 % [facility] LYMPHS 28.8 12.30 - 39.70 % [facility] MONOS 10.2 4.10 - 12.80 % [facility] EOS 5.8 0 - 7.2 % [facility] BASOS 1.1 0 - 2.80 % [facility] Granulocytes, immature (%) 0.4 0.0 - 0.9 % [facility] ABSOLUTE NEUTS 3.95 1.40 - 7.70 K/uL [facility] ABSOLUTE LYMPHS 2.12 0.60 - 3.20 K/uL [facility] ABSOLUTE MONOS 0.75(H) 0.11 - 0.59 K/uL [facility] ABSOLUTE EOS 0.43 0.01 - 0.50 K/uL [facility] ABSOLUTE BASOS 0.08 0.00 - 0.08 K/uL [facility] Granulocytes, immature 0.03 0.00 - 0.05 K/uL [facility] Blood 08/07/2017 1:40 PM EST 08/07/2017 1:44 PM EST us Meggan Ambrosio [place] MAGNETIC PROSPECTOR LAB BLOOD ORDERABLES Final Result Performing Organization Address [facility] Co de Phone Number [address] [address] * (ABNORMAL) Alanine aminotransferase (ALT) (08/07/2017 1:40 PM EST) ALT 41(H) 0 - 40 U/L [facility] Blood 08/07/2017 1:40 PM EST 08/07/2017 1:44 PM EST Meggan Ambrosio [place] MAGNETIC PROSPECTOR LAB BLOOD ORDERABLES Final Result Performing Organization Address [facility] Co de Phone Number [address] [address] documented in this encounter Visit Diagnoses Diagnosis BMI (body mass index), pediatric, greater than or equal to 95% for age- Primary Body Mass Index, pediatric, greater than or equal to 95th percentile for age documented in this encounter Care Teams Collections Agent Relationship Specialty Start Date End Date Unknown, Unknown, PCP - General 08/06/17 08/21/17 Meggan Anaya NP [address] [place] [phone] [email or web address] PCP - General Family Medicine 08/22/17 documented as of this encounter Additional Source Comments The information contained in this document represents components of the legal health record. It is not the complete legal health record.[facility]
--- OUTSIDE RECORDS SUMMARY | 2025-03-04 17:47 | XMS_ITS | Encounter Summary ---
Author Organization [facility] Address [address] [place] [address] Phone Care Team Providers Care Brisket Puller Name Role Phone Eryn Burdick MD Primary Care Provider Encounter Details Date Type Department Care Team (Late st Contact Info) Description 01/29/2017 Conversion Encounter [facility] Pediatrics - [address], [address] [place] [address] Meggan Anaya NP [address] [place] [address] Social History Tobacco Use Types Packs/Day Years Used Date Smoking Tobacco: Never Assessed Comments Unknown Sex and Gender Information Value Date Recorded Sex Assigned at Not on file Legal Sex Female 4:24 PM EDT Gender Identity Not on file Sexual Orientation Not on file documented as of this encounter Plan of Treatment Not on file documented as of this encounter Visit Diagnoses Not on filedocumented in this encounter Care Teams Brisket Puller Relationship Specialty Start Date End Date Eryn Burdick MD [address] [place] [address] PCP - General Pediatrics 08/06/17 12/19/20 documented as of this encounter
--- OUTSIDE RECORDS SUMMARY | 2025-03-04 17:47 | XMS_ITS | Encounter Summary ---
Author Organization [facility] Address [address] [place] [address] Phone Care Team Providers Care Theater Manager Name Role Phone Savannah Dallas MD Primary Care Provider + [phone] Unknown, Unknown Primary Care Provider Meggan Cummings COLLET DRILLER Primary Care Provide r Encounter Details Date Type Department Care Team (Latest Contact Info) Description 07/18/2017 Transcribe Orders [facility] [address] [place] [address] [place] [address] Maycol Guzman MD [address], [address] [place] [address] [email or web address] Joint bleeding (Primary Dx); Right hip pain; Left hip pain Social History Tobacco Use Types Packs/Day Years [...] Office Visit [facility] [address] [place] [address] [place] [address] Vida Amaya MD [address], [address] [place] [address] [phone] (work) [email or web address] documented as of this encounter Results * (ABNORMAL) Antistreptolysin O (ASO) screen (07/18/2017 3:13 PM EST) ANTI STREPTOLYSIN O Positive( A) Negative [facility] Comment:An ASO Titer has bee n reflexed. The results will follow. Blood (Blood) 07/18/2017 3:1 3 PM EST 07/18/2017 3:16 PM EST Maycol Guzman MD NON CULTURE MICROBIOLOGY Fi nal Result Performing Organization Address [facility]/ZIP Co de Phone Number [address] [address] * Antinuclear antibody (CRISTINA) (07/18/2017 3:13 PM EST) CRISTINA SCREEN ON HEP 2 Negative Negative [facility] Blood 07/18/2017 3:13 PM EST 07/18/2017 3:17 PM EST Maycol Guzman MD LAB BLOOD ORDERABLES Final Result Performing Organization Address [facility] Co de Phone Number [address] [address] * Lyme screen with reflex to Western blot, blood (07/18/2017 3:13 PM EST) Lyme AB IgG Negative Negative [facility] Lyme AB IgM Negative Negative [facility] Blood 07/18/2017 3:13 PM EST 07/18/2017 3:17 PM EST Maycol Guzman MD LAB BLOOD ORDERABLES Final Result Performing Organization Address [facility] Co de Phone Number [address] [address] * Sedimentation rate (ESR) (07/18/2017 3:13 PM EST) ESR 4 0 - 20 mm/h [facility] Blood 07/18/2017 3:13 PM EST 07/18/2017 3:17 PM EST Maycol Guzman MD LAB BLOOD ORDERABLES Final Result Performing Organization Address City/[facility]/ZIP Co de Phone Number [address] [address] * C-Reactive Protein (07/18/2017 3:13 PM EST) C REACTIVE PROTEIN 0.3 0 - 0.5 mg/L [facility] Blood 07/18/2017 3:13 PM EST 07/18/2017 3:17 PM EST Maycol Guzman MD LAB BLOOD ORDERABLES Final Result Performing Organization Address [facility] Co de Phone Number [address] [address] * (ABNORMAL) CBC and differential (07/18/2017 3:13 PM EST) WBC 9.11 3.40 - 11.20 K/uL [facility] RBC 4.61 3.80 - 4.80 M/uL [facility] HGB 14.4 12.0 - 15.0 g/dL [facility] HCT 42.1 36.0 - 46.0 % [facility] PLT 267 130 - 400 K/uL [facility] MCV 91.3 79.0 - 98.0 fL [facility] MCH 31.2 27.0 - 34.8 pg [facility] MCHC 34.2 31.5 - 36.0 g/dL [facility] RDW 11.7 10.8 - 14.6 % [facility] MPV 10.0 9.4 - 12.4 [facility] NRBC 0.00 /100 WBCs [facility] ABSOLUTE NRBC 0.00 K/uL [facility] DIFF METHOD Auto [facility] NEUTS 54.2 45.30 - 77.70 % [facility] LYMPHS 32.2 12.30 - 39.70 % [facility] MONOS 6.7 4.10 - 12.80 % [facility] EOS 5.8 0 - 7.2 % [facility] BASOS 0.9 0 - 2.80 % [facility] Granulocytes, immature (%) 0.2 0.0 - 0.9 % [facility] ABSOLUTE NEUTS 4.94 1.40 - 7.70 K/uL [facility] ABSOLUTE LYMPHS 2.93 0.60 - 3.20 K/uL [facility] ABSOLUTE MONOS 0.61(H) 0.11 - 0.59 K/uL [facility] ABSOLUTE EOS 0.53(H) 0.01 - 0.50 K/uL [facility] ABSOLUTE BASOS 0.08 0.00 - 0.08 K/uL [facility] Granulocytes, immature 0.02 0.00 - 0.05 K/uL [facility] Blood 07/18/2017 3:13 PM EST 07/18/2017 3:17 PM EST us Maycol Guzman MD LAB BLOOD ORDERABLES Final Result Performing Organization Address City/State/[facility] Co de Phone Number [facility] [address] [place] [address] documented in this encounter Visit Diagnoses Diagnosis Joint bleeding- Primary Hemarthrosis, site unspecified Right hip pain Pain in joint, pelvic region and thigh Left hip pain Pain in joint, pelvic region and thigh documented in this encounter Care Teams Theater Manager Relationship Specialty Start Date End Date Savannah Dallas MD PCP - General 05/28/17 08/05/17 Unknown, Unknown, PCP - General 08/06/17 08/21/17 Meggan Anaya NP [address] [place] [address] [email or web address] PCP - General Family Medicine 08/22/17 documented as of this encounter Additional Source Comments The information contained in this document represents components of the legal health record. It is not the complete legal health record.[facility]
--- OUTSIDE RECORDS SUMMARY | 2025-03-04 17:47 | XMS_ITS | Encounter Summary ---
Author Organization [facility] Address [address] [place] [phone] Phone Care Team Providers Care Clean Room Assembler Name Role Phone Eryn Burdick MD Primary Care Provider [phone] Encounter Details Date Type Department Care Team (Late st Contact Info) Description 02/06/2017 Conversion Encounter [facility] - [address] [address] Social History Tobacco Use Types Packs/Day Years [...] on filedocumented in this encounter Care Teams Clean Room Assembler Relationship Specialty Start Date End Date Eryn Burdick MD [address] [place] [id number] PCP - General Pediatrics 08/06/17 12/19/20 documented as of this encounter
--- OUTSIDE RECORDS SUMMARY | 2025-03-04 17:47 | XMS_ITS | Encounter Summary ---
Author Organization [facility] Address [address] [place] [address] Phone Care Team Providers Care Column Precaster Name Role Phone Savannah Dallas MD Primary Care Provider + [phone] Unknown, Unknown Primary Care Provider Meggan Cummings CATHODE RAY TUBE ASSEMBLER Primary Care Provide r Encounter Details Date Type Department Care Team (Late st Contact Info) Description 08/05/2017 Ancillary Orders [facility] [address] [place] [address] Elio Healy MD [address] [place] [address] [email or web address] Social History Tobacco Use Types Packs/Day Years [...] Office Visit [facility] [address] [place] [address] [place] [address] Vida Amaya MD [address], [address] [place] [address] [email or web address] documented as of this encounter Visit Diagnoses Not on filedocumented in this encounter Care Teams Column Precaster Relationship Specialty Start Date End Date Savannah Dallas MD PCP - General 05/28/17 08/05/17 Unknown, Unknown, PCP - General 08/06/17 08/21/17 Meggan Anaya NP [address] [place] [address] [email or web address] PCP - General Family Medicine 08/22/17 documented as of this encounter Additional Source Comments The information contained in this document represents components of the legal health record. It is not the complete legal health record.[facility]
[2025-03-04 18:53] LABS: Alanine Aminotransferase 27 U/L (0-31); Albumin Level 4.0 g/dL (3.5-5.0); Alkaline Phosphatase 47 U/L (39-117); Aspartate Amino Transferase 24 U/L (5-31); Total Protein 7.0 g/dL (6.5-8.0)
== END 2025-03-04 15:54 | disposition home or self-care (01) ==
LOC: HO.WFDLDS 15:53
PROVIDERS: Visit Provider Physician Assistant Medical
DX: R79.89 Other specified abnormal findings of blood chemistry (principal)
CPT/HCPCS: 36415; 80076

== ENCOUNTER 2025-06-06 08:51 | Outpatient (AMB) | payer OTHER, SELFPAY ==
--- NOTE | 2025-06-06 08:55 | A.OFFPC_ITS ---
Vital Signs 06/06/25 09:00 Height 5 ft 11.75 in Weight 197 lb BMI 26.9 BP 102/68 Blood Pressure Location Lt brachial Position Sitting Respiration 15 Pulse 79 Pulse Source Pulse Oximeter Temp 98 F Temp Source Temporal Artery Scan Pulse Oximetry (%) 98 Oxygen Delivery Method Room Air Intake Visit Reasons: Antidepressants Intake Note: Sarahi presents in the office today to discuss antidepressants. Senior Tax Specialist Required: No Is last menstrual period known: Yes Last menstrual period: 05/17/25 Post menopausal: No Patient : No Allergies marijuana (cannabis) Allergy (Verified 06/06/25 08:58) Itchy Seasonal Allergies Allergy (Verified 06/06/25 08:58) Runny Nose Tobacco use date assessed: 06/06/25 Dental Screening Dental Screen Date: 06/06/25 Did you have a dental visit in the last 12 months?: No Did you have a dental problem in the last 6 months where you did not have access to dental care?: No Was dental information given to patient?: Patient declined HPI HPI Comments History of Present Illness Details This is a 29-year-old female with a past medical history of migraines, asthma and seasonal allergies presenting to discuss anxiety and depression. Anxiety and depression-she has a chronic history of this, and she has been seeing the same therapist for many years every week, Phyllis Casey. Patient stopped using cocaine a year ago. She also cut back on alcohol consumption. She only drinks 1-2 drinks socially every 1-2 weeks now. She has had a very difficult year, particularly the last 2-3 months have been stressful. 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 She is planning to leave that job, but she needs to find a new 1. She is currently living with her brother. They have always helped each other because they did not have supportive parents, but her brother is dealing with his own family situation so she may not be able to live there anymore. The patient endorses a history of trauma. She really tries to implement coping strategies, but she is feeling too overwhelmed to do that. She has talked with her therapist about going back on medications, and she thinks this is the right decision. She tried Wellbutrin in the past which made her feel numb ineffective her weight. She also tried fluoxetine which made her feel like a zombie. She is still taking her vitamin-D supplement. ROS: Constitutional: Endorses fatigue Psychiatric: See HPI. No SI/HI. Physical exam: Constitutional: Alert, in no distress. Respiratory: Clear to auscultation. Cardiovascular: S1 S2 regular. No murmurs. Psychiatric: Tearful, cooperative, good eye contact [facility] Medical History (Updated 06/06/25 @ 10:01 by HALLIE Farias) Anxiety and depression Elevated LFTs Routine physical examination Clement cisterna magna Migraine Family history of ovarian cancer Screening for cardiovascular condition Fatigue Anxiety Depression Asthma Family History Father Lung cancer Leukemia Stroke Woodward's palsy Substance abuse Mother Bipolar 1 disorder, depressed, severe PTSD (post-traumatic stress disorder) Ovarian cancer Blood clotting disorder FHx: mental illness Substance abuse Brother Asthma Liver failure Substance abuse Social History (Updated 06/06/25 @ 08:59 by Lora Noguera [facility]) Housing: Apartment Alcohol intake: current Patient Tobacco Use Status: Former Tobacco user Cigarette Packs Per Day: 1.5 Cigarettes Per Day: 30 Years Smoked: 3 e-Cigarette/Vaping Use: Currently Using Second Hand Smoke Exposure: Yes Substance Use Type: Crack/Cocaine and Marijuana service: No Current occupational status: employed Current occupation: [employer], [employer] Current occupational exposures/hazards: No Cognitive needs: No Hearing needs: No Vision needs: No Female Reproductive History Menstrual Date of last menstrual period: 05/17/25 Questionnaire PHQ-9 Over the last 2 weeks, how often have you been bothered by any of the following problems? 1. Little interest or pleasure in doing things: more than half the days 2. Feeling down, depressed, or hopeless: nearly every day 3. Trouble falling or staying asleep, or sleeping too much: more than half the days 4. Feeling tired or having little energy: nearly every day 5. Poor appetite or overeating: nearly every day 6. Feeling bad about yourself - or that you are a failure or have let yourself or your family down: nearly every day 7. Trouble concentrating on things, such as reading the newspaper or watching television: nearly every day 8. Moving or speaking so slowly that other people could have noticed. Or the opposite - being so fidgety or restless that you have been moving around a lot more than usual: not at all 9. Thoughts that you would be better off or of hurting yourself in some way: not at all Total score: 19 Depression Screening Interpretation: Positive Depression Screening Follow-up: Existing condition and New Medication prescribed Depression Screening Done: Yes Source: Developed by Drs. Moose Samson, Patti Newman, Han Mclean and colleagues, with an educational tanner from [employer]. Thrive Questionnaire Date Thrive assessed: 01/13/25 I am a: Patient What is your living situation today?: I have a steady place to live Within the past 12 months, did the food you bought not last and you didn't have the money to get more?: Never true Within the past 12 months, did you worry whether your food would run out before you got money to buy more?: Sometimes True Do you have trouble paying for medicines?: Yes Do you have trouble getting transportation to medical appointments?: No Do you have trouble paying your heating and electricity bill?: No Do you have trouble taking care of your child, family member or friend?: No Do you have trouble with day-to-day activities such as bathing, preparing meals, shopping, managing finances, etc.?: No Are you currently unemployed and looking for a job?: No Are you interested in more education?: No Please select the resources that you would like help with: None Currently or been in a relationship where the following occur: No concerns reported THRIVE Score: 1 ADELINA-7 AMB Questionnaire ADELINA-7 Date ADELINA - 7 assessed: 01/13/25 Source: Developed by Drs. Moose Samson, Patti Newman, Han Mclean and colleagues, with an educational tnaner from [employer]. Physical exam (Primary Care) Vital Signs: Last Vital Signs Temp 98 F 06/06/25 09:00 Pulse 79 06/06/25 09:00 Resp 15 06/06/25 09:00 BP 102/68 06/06/25 09:00 Pulse Ox 98 06/06/25 09:00 Oxygen Delivery Method Room Air 06/06/25 09:00 BMI result Body Mass Index 26.9 Tobacco/Smoking Status: Tobacco use Status Tobacco use date assessed 06/06/25 06/06/25 09:02 Patient Tobacco Use Status Former Tobacco user 06/06/25 09:02 e-Cigarette/Vaping Use Currently Using 06/06/25 09:02 PHQ-9: PHQ-9 Score PHQ-9: Total score 19 06/06/25 09:29 Depression Screening Interpretation: Positive Depression Screening Follow-up: Existing condition and New Medication prescribed Thrive Assessment: Date of Thrive Assessment Date Thrive assessed 01/13/25 06/06/25 09:02 Currently or been in a relationship where the following occur: No concerns reported Coding Level of Care Code Est Pt Level 4 (62687) Diagnoses Anxiety and depression F41.9; F32.A Assessment & Plan Assessment & Plan (1) Anxiety and depression: Code(s): F41.9 - Anxiety disorder, unspecified; F32.A - Depression, unspecified Category: Medical Plan The patient will continue to see her therapist once a week. We discussed medication options, and she is agreeable to trying another SSRI. We will prescribe Lexapro 10 mg daily. Side effects, black box warning and administration reviewed. She will take half a tablet for the 1st week and follow up in 5 weeks. She will call sooner if she has any difficulties with it. She has a number for crisis. Medications: New escitalopram oxalate (Lexapro) Take 1/2 tab daily for a week then increase to 1 tab daily. 10 mg PO DAILY 30 tabs 0RF
[2025-06-06 09:00] VITALS: BP 102/68; PULSE 79; RESP 15; TEMP 36.6; O2SAT 98; BMI 26.9
== END 2025-06-06 09:34 | disposition home or self-care (01) ==
LOC: HO.HMCFM 08:52
PROVIDERS: PCP Physician Assistant Medical; Visit Provider Physician Assistant Medical
DX: F41.9 Anxiety disorder, unspecified (principal); F32.A Depression, unspecified

== ENCOUNTER → 2025-06-06 08:51 | Outpatient (BNVA) | payer OTHER, SELFPAY | PROVIDERS: PCP Physician Assistant Medical; Visit Provider Physician Assistant Medical | DX: F41.9 Anxiety disorder, unspecified (principal); F32.A Depression, unspecified; Z13.31 Encounter for screening for depression | CPT/HCPCS: 96127; 99212 ==